=== PATIENT | male | born 1935 | race Caucasian/White ===

== ENCOUNTER → 2016-10-22 | Outpatient (CLI) | payer MEDICARE, OTHER ==
[~2016-10-22] MED LIST: ACTOS30 MG PO; CELEBREX200 MG PO; COUMADIN **IA7.5 MG PO; DEPO-TESTOS200 MG/ML IM; FLOMAX0.4 MG PO; LEVAQUIN 250 M250 MG PO; OFEV150 MG PO; OXYGEN M-15 INH; TAMBOCOR100 MG PO; TYLENOL/COD#31 TAB PO
== END | disposition disaster alternative care site (69) ==
LOC: GBCOE 11:48
DX: M85.80 Other specified disorders of bone density and structure, unspecified site (principal); M81.0 Age-related osteoporosis without current pathological fracture